=== PATIENT | male | born 1985 | race Caucasian/White ===

== ENCOUNTER 2019-10-29 08:03 | Day surgery (SDC) | payer BC, OTHER ==
[~2019-10-29] VITALS: Ht 182.9 cm; Wt 140.0 kg
[2019-10-29] VITALS (11 sets, daily range): BP systolic 110–145; BP diastolic 64–92
[2019-10-29] MEDS ORDERED: METO50TA7 PO (08:30)
[2019-10-29] MEDS ORDERED: Lamotrigine (08:30)
[2019-10-29] MEDS ORDERED: CHLO25TA22 (08:30)
[2019-10-29] MEDS ORDERED: CATHETER FLUSH 10 ML SYR IV PRN (08:45)
[2019-10-29] MEDS ORDERED: IOHEXOL 350 MG/ML 100 ML (OMNIPAQUE 350) VIAL IV ONE (08:45)
[2019-10-29] MEDS ORDERED: NS 100 ML (IVPB) BAG IV ONE (08:45)
[2019-10-29] MEDS ORDERED: HOLD METFORMIN - RECEIVED CONTRAST 20 ML VIAL IV SCH (08:45)
--- NOTE | 2019-10-29 08:47 | ED Integumentary General ---
General Chief Complaint: Skin/Wound Problems Stated Complaint: FACE SWOLLEN Source: patient History of Present Illness Date Seen by Provider: Oct 29, 2019 Time Seen by Provider: 08:42 Initial Comments The patient is a 33-year-old white male who presents with complaints of pain and swelling in his right face. He reports that when he went to bed Friday night, 36 hours ago, he had no pain or swelling. When he awakened morning he noted swelling. He was seen by [facility] at [place]. He was given a prescription for Keflex and Bactrim which he has not filled. This morning the swelling and pain are much greater and he fears that he may ultimately not be able to swallow. He has no dental complaints. Timing/Duration: yesterday, getting worse Location: face Possible Cause: no cause identified Allergies and Home Medications Allergies Coded Allergies: No Known Drug Allergies (Unverified , 10/29/19) Home Medications Chlorthalidone 50 Mg Tablet, 50 MG PO DAILY, (Reported) Cyclobenzaprine HCl 10 Mg Tablet, 10 MG PO TID PRN for MUSCLE SPASMS, (Reported) Doxycycline Monohydrate 100 Mg Capsule, 100 MG PO BID Prescribed by: KARLA DUNBAR on 10/31/191205 Hydrocodone/Acetaminophen 1 Each Tablet, 1 EA PO Q4H PRN for PAIN-MODERATE (5-7) Prescribed by: KARLA DUNBAR on 10/31/191205 Lamotrigine 25 Mg Tablet, 50 MG PO DAILY, (Reported) TAKES 2 (25MG) TABLETS Metoprolol Succinate 50 Mg Tab.er.24h, 50 MG PO DAILY, (Reported) Miconazole Nitrate 90 Gm Powder, 0 GM TOP BID Prescribed by: KARLA DUNBAR on 10/31/191205 Mupirocin 22 Gm Oint...g., 22 GM TP BID Prescribed by: KARLA DUNBAR on 10/31/191205 Nitroglycerin 0.4 Mg Tab.subl, 0.4 MG SL UD PRN for CHEST PAIN (ANGINA), (Reported) Nystatin 15 Gm Cream..g., 0 GM TP TID Prescribed by: KARLA DUNBAR on 10/31/191205 Sulfamethoxazole/Trimethoprim 1 Each Tablet, 1 EACH PO BID Prescribed by: KARLA DUNBAR on 10/31/191205 Patient Home Medication List Home Medication List Reviewed: Yes Review of Systems Review of Systems Constitutional: see HPI Respiratory: no symptoms reported Cardiovascular: no symptoms reported Gastrointestinal: no symptoms reported Genitourinary: no symptoms reported Musculoskeletal: no symptoms reported Skin: no symptoms reported Psychiatric/Neurological: No Symptoms Reported Endocrine: No Symptoms Reported Past Lhhjnal-Vslbza-Rkgnlb Hx Patient Social History Alcohol Use: Rarely Uses Recreational Drug Use: No Smoking Status: Never a Smoker Recent Foreign Travel: No Contact w/Someone Who Travel: No Recent Hopitalizations: No Immunizations Up To Date Tetanus Booster (TDap): Less than 5yrs Date of Influenza Vaccine: Sep 24, 2019 Seasonal Allergies Seasonal Allergies: No Past Medical History Surgeries: Yes (Gastric bypass 2016, Bilat inguinal hernia) Cardiac: Yes Hypertension Neurological: No Genitourinary: No Gastrointestinal: No Musculoskeletal: No Endocrine: No HEENT: No Cancer: No Psychosocial: Yes (medicated for "Anger issues" ) Integumentary: Yes (area of concern R cheek marked swelling) Recent Skin Changes Blood Disorders: No Physical Exam Vital Signs Vital Signs - First Documented 10/29/19 08:10 Temp 36.4 Pulse 88 Resp 18 B/P (MAP) 154/87 (109) Pulse Ox 98 O2 Delivery Room Air Capillary Refill : General Appearance: mild distress Neck: non-tender, full range of motion Cardiovascular: regular rate, rhythm, no edema, no gallop Respiratory: chest non-tender, lungs clear, normal breath sounds Comments There is remarkable swelling in the right cheek. There is a small skin abrasion just posterior to the right nasolabial fold. There is no evidence of dental disease or gum swelling. The neck is soft without palpable nodes. Progress/Results/Core Measures Results/Orders Lab Results Laboratory Tests Test 10/29/19 08:43 Range/Units White Blood Count 8.1 4.3-11.0 10^3/uL Red Blood Count 5.05 4.35-5.85 10^6/uL Hemoglobin 14.3 13.3-17.7 G/DL Hematocrit 42 40-54 % Mean Corpuscular Volume 85 80-99 FL Mean Corpuscular Hemoglobin 28 25-34 PG Mean Corpuscular Hemoglobin Concent 33 32-36 G/DL Red Cell Distribution Width 12.9 10.0-14.5 % Platelet Count 250 130-400 10^3/uL Mean Platelet Volume 10.2 7.4-10.4 FL Neutrophils (%) (Auto) 73 42-75 % Lymphocytes (%) (Auto) 17 12-44 % Monocytes (%) (Auto) 7 0-12 % Eosinophils (%) (Auto) 2 0-10 % Basophils (%) (Auto) 0 0-10 % Neutrophils # (Auto) 5.9 1.8-7.8 X 10^3 Lymphocytes # (Auto) 1.3 1.0-4.0 X 10^3 Monocytes # (Auto) 0.6 0.0-1.0 X 10^3 Eosinophils # (Auto) 0.2 0.0-0.3 10^3/uL Basophils # (Auto) 0.0 0.0-0.1 10^3/uL Sodium Level 137 135-145 MMOL/L Potassium Level 3.3 L 3.6-5.0 MMOL/L Chloride Level 95 L 98-107 MMOL/L Carbon Dioxide Level 31 21-32 MMOL/L Anion Gap 11 5-14 MMOL/L Blood Urea Nitrogen 12 7-18 MG/DL Creatinine 0.96 0.60-1.30 MG/DL Estimat Glomerular Filtration Rate > 60 BUN/Creatinine Ratio 13 Glucose Level 104 70-105 MG/DL Calcium Level 9.4 8.5-10.1 MG/DL Corrected Calcium 9.2 8.5-10.1 MG/DL Total Bilirubin 0.6 0.1-1.0 MG/DL Aspartate Amino Transf (AST/SGOT) 17 5-34 U/L Alanine Aminotransferase (ALT/SGPT) 12 0-55 U/L Alkaline Phosphatase 84 40-136 U/L Total Protein 7.4 6.4-8.2 GM/DL Albumin 4.2 3.2-4.5 GM/DL My Orders Orders - LAURIE OLEARY MD Cbc With Automated Diff (10/29/19 08:40) Comprehensive Metabolic Panel (10/29/19 08:40) Ct Neck (Soft Tissue) W (10/29/19 08:40) Iohexol Injection (Omnipaque 350 Mg/Ml 1 (10/29/19 08:45) Received Contrast (Hold Metformin- Contr (10/29/19 08:45) Sodium Chloride Flush (Catheter Flush Sy (10/29/19 08:45) Ns (Ivpb) (Sodium Chloride 0.9% Ivpb Bag (10/29/19 08:45) Fentanyl Injection (Sublimaze Injection (10/29/19 09:45) Piperacillin/Tazobactam (Bulk) (Zosyn In (10/29/19 10:00) Piperacillin Sodium/Tazobactam (Zosyn Vi (10/29/19 10:00) Water (Sterile) For Injection (Sterile W (10/29/19 10:00) Ns (Ivpb) (Sodium Chloride 0.9% Ivpb Bag (10/29/19 10:00) Medications Given in ED Vital Signs/I&O 10/29/19 08:10 Temp 36.4 Pulse 88 Resp 18 B/P (MAP) 154/87 (109) Pulse Ox 98 O2 Delivery Room Air Departure Communication (Admissions) CT scan returned with a reports of considerable inflammation in the area described in the exam. They did not describe abscess formation at this point b ut expected it to develop. I spoke to Dr. Lamb from the ENT service at 0946. After considering options we elected to admit him to the [facility] for IV antibiotics. His than anticipated that he will require drainage to follow. 0953 I then discussed this with Dr. Dunbar who is online merchant for [facility] hospitalist. We agreed that he would be given his first dose of antibiotic here and then be transferred there. The planned antibiotics will be vancomycin and Zosyn. Impression Primary Impression: right facial abscess Disposition: XF T-[facility] Condition: Stable/Unchanged Admissions Decision to Admit Reason: Admit from ER (General) Decision to Admit/Date: Oct 29, 2019 Time/Decision to Admit Time: 09:55 Departure-Patient Inst. Referrals: NO,LOCAL PHYSICIAN (PCP/Family) Primary Care Physician Scripts Mupirocin (Mupirocin) 22 Gm Oint...g. 22 GM TP BID, #1 TUBE Prov: KARLA DUNBAR DO 10/31/19 Sulfamethoxazole/Trimethoprim (Bactrim 400-80 mg Tablet) 1 Each Tablet 1 EACH PO BID, #14 TAB Prov: KARLA DUNBAR DO 10/31/19 Doxycycline Monohydrate (Doxycycline Monohydrate) 100 Mg Capsule 100 MG PO BID, #14 CAP Prov: KARLA DUNBAR DO 10/31/19 Nystatin (Nystatin) 15 Gm Cream..g. 0 GM TP TID, #1 TUBE Prov: KARLA DUNBAR DO 10/31/19 Miconazole Nitrate (Lotrimin AF) 90 Gm Powder 0 GM TOP BID, #1 EA Prov: KARLA DUNBAR DO 10/31/19 Hydrocodone/Acetaminophen (Hydrocodon-Acetaminophn 10-325) 1 Each Tablet 1 EA PO Q4H PRN for PAIN-MODERATE (5-7), #10 TAB Prov: KARLA DUNBAR DO 10/31/19 Images Head/Face 1 - Abrasion LAURIE OLEARY MD Oct 29, 2019 08:47 POS
[2019-10-29 08:57] LABS: HEMATOCRIT 42 % (40-54); HEMOGLOBIN 14.3 G/DL (13.3-17.7); MEAN CORPUSCULAR HEMOGLOBIN 28 PG (25-34); MEAN CORPUSCULAR HGB CONC 33 G/DL (32-36); MEAN CORPUSCULAR VOLUME 85 FL (80-99); MEAN PLATELET VOLUME 10.2 FL (7.4-10.4); PLATELET COUNT 250 10^3/uL (130-400); RED CELL DISTRIBUTION WIDTH 12.9 % (10.0-14.5); WHITE BLOOD COUNT 8.1 10^3/uL (4.3-11.0)
[2019-10-29 08:58] LABS: BASOPHILS % (AUTO) 0 % (0-10); EOSINOPHILS # (AUTO) 0.2 10^3/uL (0.0-0.3); EOSINOPHILS % (AUTO) 2 % (0-10); LYMPHOCYTES # (AUTO) 1.3 X 10^3 (1.0-4.0); LYMPHOCYTES % (AUTO) 17 % (12-44); MONOCYTES # (AUTO) 0.6 X 10^3 (0.0-1.0); MONOCYTES % (AUTO) 7 % (0-12); NEUTROPHILS # (AUTO) 5.9 X 10^3 (1.8-7.8); NEUTROPHILS % (AUTO) 73 % (42-75)
[2019-10-29 09:09] LABS: POTASSIUM 3.3 MMOL/L (3.6-5.0); SODIUM 137 MMOL/L (135-145)
[2019-10-29 09:10] LABS: ALANINE AMINOTRANSFERASE 12 U/L (0-55); ALBUMIN 4.2 GM/DL (3.2-4.5); ALKALINE PHOSPHATASE 84 U/L (40-136); BILIRUBIN,TOTAL 0.6 MG/DL (0.1-1.0); BUN/CREATININE RATIO 13; CALCIUM 9.4 MG/DL (8.5-10.1); CARBON DIOXIDE 31 MMOL/L (21-32); CHLORIDE 95 MMOL/L (98-107); CREATININE SERUM 0.96 MG/DL (0.60-1.30); GFR ESTIMATED > 60; GLUCOSE 104 MG/DL (70-105); TOTAL PROTEIN 7.4 GM/DL (6.4-8.2)
--- NOTE | 2019-10-29 09:20 | Diagnostic Imaging Report ---
PROCEDURE: CT neck soft tissue with contrast. TECHNIQUE: Multiple contiguous axial images were obtained through the neck after the administration of contrast. Auto Exposure Controls were utilized during the CT exam to meet ALARA standards for radiation dose reduction. INDICATION: Right-sided facial swelling. COMPARISON: None available. FINDINGS: The minimally visualized intracranial contents are grossly unremarkable. The orbits are unremarkable. Significant fat stranding is noted within the subcutaneous tissues of the right face and neck. This is associated with mild skin thickening. Thickening of the right platysma is also noted. Lymph nodes within the right neck are asymmetrically prominent in size and number. No definite focal fluid collection. The muscles of mastication are unremarkable. The salivary glands are unremarkable. Parapharyngeal fat is symmetric and well-maintained. The tonsillar pillars are unremarkable. Retropharyngeal space is unremarkable. The airway is patent. Epiglottis and aryepiglottic folds are unremarkable. The thyroid gland is unremarkable. Visualized lung apices are clear. No apical pneumothorax. The paranasal sinuses are clear. The calvarium is intact within the hahiz-zq-oljo. No acute osseous abnormality. No evidence of osseous destruction. No temporomandibular joint dislocation. IMPRESSION: Significant inflammatory stranding involving the right face and neck with associated mildly prominent right-sided lymph nodes and thickening of the platysma. Findings are favored to relate to cellulitis. No definite evidence of a focal fluid collection to suggest abscess formation. Dictated by: Dictated on workstation # [id number]
[2019-10-29] MEDS ORDERED: fentaNYL INJECTION 100 MCG/2 ML AMP IVP ONE (09:45)
[2019-10-29] MEDS ORDERED: NS (IVPB) 100 ML ONE (10:00)
[2019-10-29] MEDS ORDERED: WATER (STERILE) FOR INJECTION 20 ML ONE (10:00)
[2019-10-29] MEDS ORDERED: PIPERACILLIN/TAZO 4.5 GM VIAL (ZOSYN) IV ONE (10:00)
[2019-10-29] MEDS ORDERED: PIPERACILLIN/TAZOBACTAM (BULK) 4.5 GM in NS (IVPB) 100 ML IV ONE (10:00)
--- NOTE | 2019-10-29 10:48 | NUR ---
Notified Intellectual Property Counsel pt is departing [facility] post Zosyn given, requiring Vanc on admit. SL intact RAC flushed with Coban wrapping after for protection. Airway patent, SaO2 96% R.A.
--- NOTE | 2019-10-29 11:50 | NUR ---
CR 0.96; CR CL > 80; WT 140 KG; VANCO 2250 MG IV BOLUS THEN 2000 MG IV Q12H; TROUGH AFTER 3RD DOSE
[2019-10-29] MEDS ORDERED: VANCOMYCIN INJECTION 2,250 MG in NS IV 500 ML 500 ML IV NR (12:00)
[2019-10-29] MEDS: fentaNYL INJECTION 100 MCG/2 ML AMP IV PRN ×3 (12:20→19:42)
--- NOTE | 2019-10-29 12:30 | NUR ---
Felix Garcia] admitted to room 411-1, with an admitting diagnosis of , on 10/29/19 from [place] via , accompanied by .FELIX GARCIA introduced to surroundings, call light, bed controls, phone, TV, temperature control, lights, meal times, smoking policy, visitor policy, side rail policy, bathrooms and showers. Patient Rights given to patient in the handbook.FELIX GARCIA verbalizes understanding that [facility] is not responsible for the loss or damage to any personal effects or valuables that are kept in the patients posession during their hospitalization. FELIX GARCIA verbalizes understanding of Interdisciplinary Patient Education. Patient and/or family were informed about the Rapid Response Team and its purpose.
[2019-10-29] MEDS ORDERED: LAMO25TA8 PO (13:06)
[2019-10-29] MEDS ORDERED: CYCL10TA9 PO (13:06)
[2019-10-29] MEDS ORDERED: NITR0.4T42 SL (13:06)
[2019-10-29] MEDS ORDERED: CHLO50TA2 PO (13:06)
[2019-10-29] MEDS ORDERED: CYCLOBENZAPRINE 10 MG (FLEXERIL) TAB PO PRN (13:30)
[2019-10-29] MEDS ORDERED: NITROGLYCERIN 0.4 MG SL TABS BTL 25'S SL PRN (13:30)
[2019-10-29] MEDS: NS IV 1000 ML 1,000 ML IV SCH ×2 (13:48→22:08)
[2019-10-29] MEDS: PIPERACILLIN/TAZO 4.5 GM/NS 100 ML IV SCH ×2 (15:09)
--- NOTE | 2019-10-29 16:50 | Progress Note ---
Standard Progress Note Progress Notes/Assess & Plan Date Seen by a Provider: Oct 29, 2019 Time Seen by a Provider: 16:30 Progress/Assessment & Plan ENT-History/Physical CC: Swollen Right Cheek HPI: Patient admitted earlier today for swollen right cheek. Started on Fri- exploded and got bigger on . Seen and antibiotics written but not picked up. IN ER in [facility] this am. ADmitted to hospital here early this afternoon. Been NPO. REceiving vanco. C/O marked right cheek pain. Teeth ok accorrding to patient. Hurts to open mouth. CT in [facility] showed marked swelling but no abscess at that time. PMHX; wieght los ssurgery in 2016, Heart [id number] patients report no heart abnormality found. 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 I/D in OR with drain placement and cultures-risks and benefits reviewed. consent obtained. Will proceed to OR when crew/anes available 2. would anticipate leaving drain in until at least friday morning so will need contineud IV antibiotics and hosp until then Final Diagnosis Right Cheek Abscess EMY HORTA MD Oct 29, 2019 16:50 POS
--- NOTE | 2019-10-29 16:51 | Progress Note-Pre Operative ---
Pre-Operative Progress Note H&P Reviewed The H&P was reviewed, patient examined and no changes noted. Date Seen by Provider: Oct 29, 2019 Time Seen by Provider: 16:30 Date H&P Reviewed: Oct 29, 2019 Time H&P Reviewed: 16:30 Pre-Operative Diagnosis: Large Right Cheek Abscess EMY HORTA MD Oct 29, 2019 16:51 POS
[2019-10-29] MEDS ORDERED: proPOfol 200 MG/20 ML (DIPRIVAN) VIAL IV ONE (17:14)
[2019-10-29] MEDS ORDERED: DEXAMETHASONE 10 MG/ML (DECADRON) 1 ML VIAL ONE (17:14)
[2019-10-29] MEDS ORDERED: SEVOFLURANE (ULTANE) 15 ML INHAL SOLN ONE ×2 (17:14→17:17)
[2019-10-29] MEDS ORDERED: fentaNYL INJECTION 100 MCG/2 ML AMP ONE ×2 (17:14→17:44)
[2019-10-29] MEDS ORDERED: ONDANSETRON 4 MG/2 ML (SDV) Z0FRAN ONE (17:14)
[2019-10-29] MEDS ORDERED: MIDAZOLAM 2 MG/2 ML (VERSED) VIAL ONE (17:15)
[2019-10-29] MEDS ORDERED: LIDOCAINE/EPI 1%-1:100,000 (XYLOCAINE) 20ML ONE (17:16)
[2019-10-29] MEDS ORDERED: SUCCINYLCHOLINE INJ 100 MG/5 ML SYR ONE (17:17)
[2019-10-29] MEDS ORDERED: morphine INJ 10 MG/ML 1ML (SYR OR VIAL) ONE (17:21)
--- NOTE | 2019-10-29 17:24 | NUR ---
Surgery here to transport patient to OR.
[2019-10-29] MEDS ORDERED: LACTATED RINGERS 1,000 ML IV PRN (17:40)
[2019-10-29] MEDS ORDERED: BSS 15 ML ONE (17:50)
--- NOTE | 2019-10-29 17:58 | Progress Note-Post Operative ---
Post-Operative Progess Note Surgeon (s)/Access Liaison (s) Surgeon EMY HORTA MD Access Liaison n/a Pre-Operative Diagnosis Large Right Cheek Abscess Post-Operative Diagnosis same Post-Op Procedure Note Date of Procedure: Oct 29, 2019 Name of Procedure Performed: I/D Large Right Cheek Abscess Description & Findings Description and Findings: n/a Anesthesia Type get Estimated Blood Loss minimal Packing none. Specimen(s) collected/removed 1 1/2 inch tova drain sewn in; aerobic and anaerobic cultures sent to lab EMY HORTA MD Oct 29, 2019 17:58 POS
--- NOTE | 2019-10-29 18:12 | Anesthesia-General Post-Op ---
General Patient Condition Mental Status/LOC: Same as Preop Cardiovascular: Satisfactory Nausea/Vomiting: Absent Respiratory: Satisfactory Pain: Controlled Complications: Absent Post Op Complications Complications None Follow Up Care/Instructions Patient Instructions None needed. Anesthesia/Patient Condition Patient Condition Patient is doing well, no complaints, stable vital signs, no apparent adverse anesthesia problems. No complications reported per nursing. AMEENA RODRIGUEZ CRNA Oct 29, 2019 18:12 POS
[2019-10-29] MEDS ORDERED: ONDANSETRON 4 MG/2 ML (SDV) Z0FRAN IVP PRN (18:15)
[2019-10-29] MEDS ORDERED: MEPERIDINE (DEMEROL) INJ 50 MG/ML IVP ONE (18:15)
[2019-10-29] MEDS ORDERED: morphine INJ 10 MG/ML 1ML (SYR OR VIAL) IVP ONE (18:15)
--- NOTE | 2019-10-29 19:15 | NUR ---
PT RETURNED FROM OR. REPORT GIVEN FROM CLARK LYNN.
--- NOTE | 2019-10-29 21:30 | NUR ---
PT COMPLAINS OF "DRIPPING" FEELING UNDER HIS DRSG TO RIGHT CHEEK. TOOK DRSG OFF AND SMALL AMOUNT OF SEROSANGUINEOUS DRAINAGE NOTED. DRSG CHANGED. WILL CONTINUE TO MONITOR FOR DRAINAGE AT THIS TIME.
[2019-10-29] MEDS: VANCOMYCIN 2000 MG/NS 500 ML IVPB IV SCH ×2 (22:13)
[2019-10-30] VITALS: BP 131/70
[2019-10-30] MEDS: PIPERACILLIN/TAZO 4.5 GM/NS 100 ML IV SCH ×6 (00:27→16:49)
[2019-10-30] MEDS: fentaNYL INJECTION 100 MCG/2 ML AMP IV PRN ×2 (00:28→08:18)
[2019-10-30 04:00] VITALS: BP 118/56
[2019-10-30] MEDS: NS IV 1000 ML 1,000 ML IV SCH (04:15)
[2019-10-30] MEDS: CHLORTHALIDONE 25 MG (HYGROTON) TABLET PO SCH (05:45)
--- NOTE | 2019-10-30 06:50 | Progress Note ---
Standard Progress Note Progress Notes/Assess & Plan Date Seen by a Provider: Oct 30, 2019 Time Seen by a Provider: 06:30 Progress/Assessment & Plan ENT-History/Physical CC: Swollen Right Cheek HPI: Patient admitted earlier today for swollen right cheek. Started on Fri- exploded and got bigger on . Seen and antibiotics written but not picked up. IN ER in [facility] this am. ADmitted to hospital here early this afternoon. Been NPO. REceiving vanco. C/O marked right cheek pain. Teeth ok accorrding to patient. Hurts to open mouth. CT in [facility] showed marked swelling but no abscess at that time. PMHX; wieght los ssurgery in 2016, Heart [id number] patients report no heart abnormality found. 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 I/D in OR with drain placement and cultures-risks and benefits reviewed. consent obtained. Will proceed to OR when crew/anes available 2. would anticipate leaving drain in until at least friday morning so will need contineud IV antibiotics and hosp until then ENT-Fernando Doing much better this am MInimal pain-still with moderate drainage from drain raman diet Face-drain intact with mod drainage on dressing diet as raman/ may shower-keep area dry needs 24 more hours of IV antibiotics and if draiange comes down then will pull ramiro in am and coudl be discharged on oral antibiotics-no culture results back yet facial movements are normal EMY HORTA MD Oct 30, 2019 06:50 POS
[2019-10-30 08:06] VITALS: BP 128/67
[2019-10-30] MEDS: lamoTRIgine 25 MG (LaMICtal) TAB PO SCH (08:13)
[2019-10-30] MEDS: meTOproloL SUCCINATE 50 MG (TOPROL XL) TAB PO SCH (08:13)
[2019-10-30] MEDS ORDERED: LAMOTRIGINE 50 MG PO SCH (09:00)
[2019-10-30] MEDS ORDERED: CHLORTHALIDONE 50 MG PO SCH (09:00)
[2019-10-30 09:41] LABS: BASOPHILS % (AUTO) 0 % (0-10); EOSINOPHILS % (AUTO) 0 % (0-10); HEMATOCRIT 40 % (40-54); HEMOGLOBIN 13.9 G/DL (13.3-17.7); LYMPHOCYTES # (AUTO) 0.6 X 10^3 (1.0-4.0); LYMPHOCYTES % (AUTO) 6 % (12-44); MEAN CORPUSCULAR HEMOGLOBIN 29 PG (25-34); MEAN CORPUSCULAR HGB CONC 35 G/DL (32-36); MEAN CORPUSCULAR VOLUME 83 FL (80-99); MEAN PLATELET VOLUME 10.6 FL (7.4-10.4); MONOCYTES # (AUTO) 0.5 X 10^3 (0.0-1.0); MONOCYTES % (AUTO) 6 % (0-12); NEUTROPHILS # (AUTO) 8.5 X 10^3 (1.8-7.8); NEUTROPHILS % (AUTO) 88 % (42-75); PLATELET COUNT 286 10^3/uL (130-400); RED CELL DISTRIBUTION WIDTH 13.2 % (10.0-14.5); WHITE BLOOD COUNT 9.7 10^3/uL (4.3-11.0)
[2019-10-30 09:55] LABS: ALANINE AMINOTRANSFERASE 13 U/L (0-55); ALBUMIN 4.1 GM/DL (3.2-4.5); ALKALINE PHOSPHATASE 73 U/L (40-136); BILIRUBIN,TOTAL 0.6 MG/DL (0.1-1.0); BUN/CREATININE RATIO 10; CALCIUM 9.1 MG/DL (8.5-10.1); CARBON DIOXIDE 26 MMOL/L (21-32); CHLORIDE 100 MMOL/L (98-107); CREATININE SERUM 0.89 MG/DL (0.60-1.30); GFR ESTIMATED > 60; GLUCOSE 182 MG/DL (70-105); SODIUM 138 MMOL/L (135-145); TOTAL PROTEIN 7.1 GM/DL (6.4-8.2)
--- NOTE | 2019-10-30 10:05 | History & Physical-Hospitalist ---
History of Present Illness HPI/Chief Complaint CC: Facial pain. HPI: This is a 28yo[place] of [place] who presents with facial pain, found to have an abscess in need of IV antibiotics of Vancomycin and Zosyn for broad spectrum in addition to Dr. Lamb consultation who performed an incision and drainage. At this current time Pt is requesting his home medication and denies any significant pain otherwise. Broad spectrum abx on board. Source: patient Exam Limitations: no limitations Date Seen 10/30/19 Time Seen by a Provider: 10:30 Attending Physician Angelina Wilkinson DO PCP No,Local Physician Referring Physician Date of Admission Oct 29, 2019 at 10:17 Home Medications & Allergies Home Medications Reviewed patient Home Medication Reconciliation performed by pharmacy medication reconciliations shale processing technician and/or nursing. Patients Allergies have been reviewed. Allergies Allergies Coded Allergies No Known Drug Allergies (Rthkuedmck05/6/19) Past Kupijru-Kjvmzx-Fydxuz Hx Past Med/Social Hx: Reviewed Nursing Past Med/Soc Hx, Reviewed and Corrections made Patient Social History Marrital Status: Employed/Student: employed ([employer]) Alcohol Use: Rarely Uses Recreational Drug Use: No Smoking Status: Never a Smoker Recent Foreign Travel: No Contact w/other who traveled: No Recent Hopitalizations: No Recent Infectious Disease Expo: No Immunizations Up To Date Tetanus Booster (TDap): Less than 5yrs Date of Influenza Vaccine: Sep 24, 2019 Seasonal Allergies Seasonal Allergies: No Past Medical History Cardiac: Hypertension Psychosocial: Depression Skin/Integumentary: Recent Skin Changes History of Blood Disorders: No Family History Diabetes mellitus 19 FATHER 19 MOTHER G8 SISTER Thyroid disease G8 SISTER Review of Systems Constitutional: see HPI, fever EENTM: mouth pain, mouth swelling, throat pain, throat swelling Physical Exam Physical Exam Vital Signs Vital Signs - First Documented 10/29/19 10/29/19 08:10 18:09 Temp 36.4 Pulse 88 Resp 18 B/P (MAP) 154/87 (109) Pulse Ox 98 O2 Delivery Room Air O2 Flow Rate 10 Capillary Refill : Less Than 3 Seconds Height, Weight, BMI Height: '" Weight: lbs. oz. kg; 41.91 BMI Method: General Appearance: WD/WN, Chronically ill, Mild Distress, Obese Eyes: Right Eye Normal Inspection, Right Eye PERRL HEENT: PERRL/EOMI, Other (right mandible with abscess) Neck: Full Range of Motion, Normal Inspection, Non Tender Respiratory: Chest Non Tender, Lungs Clear, Normal Breath Sounds, No Accessory Muscle Use, No Respiratory Distress Cardiovascular: Regular Rate, Rhythm, No Edema, No Gallop, No JVD, No Murmur, Normal Peripheral Pulses Gastrointestinal: Normal Bowel Sounds, No Organomegaly, No Pulsatile Mass, Non Tender, Soft Back: Normal Inspection, No CVA Tenderness, No Vertebral Tenderness Extremity: Normal Capillary Refill, Normal Inspection, Normal Range of Motion, Non Tender, No Calf Tenderness, No Pedal Edema Neurologic/Psychiatric: Alert, Oriented x3, No Motor/Sensory Deficits, Normal Mood/Affect Skin: Normal Color, Warm/Dry Lymphatic: No Adenopathy Results Results/Procedures Labs Laboratory Tests 10/30/19 08:57 Patient resulted labs reviewed. Assessment/Plan Admission Diagnosis Assessment: Right facial abscess s/p I&D HTN Plan: Abx DR Lamb appreciated Admission Status: Observation Diagnosis/Problems Diagnosis/Problems (1) Facial abscess Clinical Quality Measures DVT/VTE Risk/Contraindication: Risk Factor Score Per Nursin RFS Level Per Nursing on Admit: 2=Moderate ANGELINA WILKINSON DO Oct 30, 2019 10:05 POS
[2019-10-30 10:13] LABS: BAND NEUTROPHILS 1 %; LYMPHOCYTES % (MANUAL) 2 %; MONOCYTES % (MANUAL) 8 %; NEUTROPHILS % (MANUAL) 89 %; RBC MORPH NORMAL
[2019-10-30 10:14] LABS: HYPERSEGMENTED NEUT SLIGHT
[2019-10-30 11:46] VITALS: BP 130/75
[2019-10-30] MEDS: VANCOMYCIN 2000 MG/NS 500 ML IVPB IV SCH ×2 (11:57)
[2019-10-30] MEDS: NYSTATIN CREAM (MYCOSTATIN) 30 GM TUBE TP SCH ×2 (11:58→19:44)
[2019-10-30] MEDS: HYDROcodone/APAP 10 MG/325 MG (LORTAB) TAB PO PRN ×2 (13:04→19:44)
[2019-10-30 15:31] VITALS: BP 156/79
[2019-10-30 19:21] VITALS: BP 101/55
[2019-10-30] MEDS: MICONAZOLE 2% POWDER (DESENEX AF) 90 GM TOP SCH (19:45)
[2019-10-30] MEDS ORDERED: TROUGH ORDER-PHARMACY XX NR (23:00)
[2019-10-31] VITALS: BP 116/73
[2019-10-31] MEDS: VANCOMYCIN 2000 MG/NS 500 ML IVPB IV SCH ×2
[2019-10-31] MEDS: PIPERACILLIN/TAZO 4.5 GM/NS 100 ML IV SCH ×4 (02:10→08:34)
[2019-10-31 04:00] VITALS: BP 113/71
[2019-10-31] MEDS: HYDROcodone/APAP 10 MG/325 MG (LORTAB) TAB PO PRN ×2 (06:06)
[2019-10-31] MEDS: CHLORTHALIDONE 25 MG (HYGROTON) TABLET PO SCH (06:07)
--- NOTE | 2019-10-31 06:48 | Progress Note ---
Standard Progress Note Progress Notes/Assess & Plan Date Seen by a Provider: Oct 31, 2019 Time Seen by a Provider: 06:30 Progress/Assessment & Plan ENT-History/Physical CC: Swollen Right Cheek HPI: Patient admitted earlier today for swollen right cheek. Started on Fri- exploded and got bigger on . Seen and antibiotics written but not picked up. IN ER in [facility] this am. ADmitted to hospital here early this afternoon. Been NPO. REceiving vanco. C/O marked right cheek pain. Teeth ok accorrding to patient. [facility]. PMHX; wieght los ssurgery in 2016, Heart [id number] patients report no heart abnormality found. all-see chart Exam General-patient in moderate distress-hurts to open mouth or talk FAce-marked swelling right cheek with skin abrasion where it started just lateral to the upper lip Lower lip swollen and tingling OC-finger waver open mouth but hurts no swellign of tongue-teeth in decent shap and no evidence of abscess Neck-minimal swellign in neck Airway-good airway present no stridor IMP: Large Rigth Cheek Abscess-probable staph Rec: 1. I/D in OR with drain placement and cultures-risks and benefits reviewed. consent obtained. Will proceed to OR when crew/anes available 2. would anticipate leaving drain in until at least friday morning so will need contineud IV antibiotics and hosp until then [id number] Doing much better this am MInimal pain-still with moderate drainage from drain raman diet Face-drain intact with mod drainage on dressing diet as raman/ may shower-keep area dry needs 24 more hours of IV antibiotics and if draiange comes down then will pull ramiro in am and coudl be discharged on oral antibiotics-no culture results back yet facial movements are normal [id number] doing well no sign pain Drainage has decreased. Await cultures drain d/c'ed [id number] improved- can discharge on bactrim and doxycylcine-bactroban to incision site RTC-2 weeks Final Diagnosis Right Cheek abscess -probable MRSA EMY HORTA MD Oct 31, 2019 06:48 POS
--- NOTE | 2019-10-31 07:00 | NUR ---
DR HORTA DID ROUNDS THIS AM AND REPORTED TO THIS NURSE BELT LINE FEEDER THAT HE TOOK OUT DRAIN THIS MORNING IN PT'S CHEEK AND THAT HE WAS FINE TO DISCHARGE LONG DR DUNBAR WAS OK WITH IT. DR HORTA REPORTED TO THIS RN THAT HE PUT SIGNED SCRIPTS FOR ANTIBIOTICS IN CHART AND THAT HE WAS OK TO GO BACK TO WORK WHEN HE IS READY. DR DUNBAR NOTIFIED AND AM RN NOTIFIED OF THIS INFO WELL.
[2019-10-31 08:00] VITALS: BP 136/72
[2019-10-31] MEDS: lamoTRIgine 25 MG (LaMICtal) TAB PO SCH (08:34)
[2019-10-31] MEDS: meTOproloL SUCCINATE 50 MG (TOPROL XL) TAB PO SCH (08:34)
[2019-10-31] MEDS: MICONAZOLE 2% POWDER (DESENEX AF) 90 GM TOP SCH (08:42)
[2019-10-31] MEDS: NYSTATIN CREAM (MYCOSTATIN) 30 GM TUBE TP SCH (08:42)
[2019-10-31 12:00] VITALS: BP 128/56
[2019-10-31] MEDS ORDERED: NYST15CR TP (12:06)
[2019-10-31] MEDS ORDERED: HYDR-3820 PO (12:06)
[2019-10-31] MEDS ORDERED: MICO90PO TOP (12:06)
[2019-10-31] MEDS ORDERED: DOXY100C42 PO (12:06)
[2019-10-31] MEDS ORDERED: SULF1TAB34 PO (12:06)
[2019-10-31] MEDS ORDERED: MUPI22OI2 TP (12:06)
--- NOTE | 2019-10-31 12:07 | Discharge Summary ---
Discharge Summary Hospital Course Was the Problem List Reviewed?: Yes Hospital Course Date of Admission: Oct 29, 2019 at 10:17 Admission Diagnosis : Family Physician/Provider: No,Local Physician Date of Discharge: 10/31/19 Discharge Diagnosis: right cheek abscess, s/p weight loss surgery in past, HTN Hospital Course: Patient was admitted with broad-spectrum antibiotics from the [facility] and Dr. Lamb was consulted who performed the incision and drainage and patient maintained with close monitoring with IV fluids and supportive care. Dr. Lamb assessed the area found him to be in good healing resolution phase and rec ommended doxycycline and Bactrim and Bactroban to the area at discharge. Labs and Pending Lab Test: Laboratory Tests 10/30/19 23:03: Vancomycin Level Trough 14.2 Microbiology 10/29/19 Gram Stain - Final, Resulted 10/29/19 Anaerobic Culture, Resulted Pending 10/29/19 Surgical Culture - Preliminary, Resulted Usual Mixed Skin Mireille Staphylococcus aureus Home Meds Active Reported Nitroglycerin 0.4 Mg Tab.subl 0.4 Mg SL UD PRN Cyclobenzaprine HCl 10 Mg Tablet 10 Mg PO TID PRN Chlorthalidone 50 Mg Tablet 50 Mg PO DAILY Lamotrigine 25 Mg Tablet 50 Mg PO DAILY TAKES 2 (25MG) TABLETS Metoprolol Succinate 50 Mg Tab.er.24h 50 Mg PO DAILY Assessment/Pt Instructions [facility] Friday, Discharge Planning: <30 minutes discharge planning Discharge Instructions Discharge Diet: No Restrictions Activity as Tolerated: Yes Discharge Physical Examination Vital Signs Vital Signs Date Time Temp Pulse Resp B/P (MAP) Pulse Ox O2 Delivery O2 Flow Rate FiO2 10/31/19 08:00 36.2 67 20 136/72 (93) 98 Room Air 10/29/19 18:40 5 General Appearance: No Apparent Distress, WD/WN, Obese Respiratory: Lungs Clear Cardiovascular: Regular Rate, Rhythm Skin: Other (right face dressing intact) Neurologic/Psychiatric: Alert, Oriented x3, No Motor/Sensory Deficits, Normal Mood/Affect Allergies: Coded Allergies: No Known Drug Allergies (Unverified , 10/29/19) Discharge Summary Date of Admission Oct 29, 2019 at 10:17 Date of Discharge Discharge Date: Oct 31, 2019 Clinical Quality Measures DVT/VTE Risk/Contraindication: Risk Factor Score Per Nursin RFS Level Per Nursing on Admit: 2=Moderate KARLA DUNBAR DO Oct 31, 2019 12:07 POS
[2019-10-31] MEDS ORDERED: KCL 20 MEQ TAB (K-DUR) PO NR (12:15)
[2019-10-31 13:03] VITALS: BP 128/56
--- OUTSIDE RECORDS SUMMARY | 2019-11-24 10:08 | XMS REPORT | Continuity of Care Document ---
Author Organization Unknown Address Unknown Phone Unavailable Allergies Active Description Code Type Severity Reaction Onset Reported/Identified Relationship to Patient Clinical Status Yes No Known Drug Allergies [id number] Drug Allergy Unknown N/A 10/29/2019 Medications There is no data. 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 Results Test Result Range LIPID PANEL - 04/30/19 07:18 CHOLESTEROL, TOTAL 158 mg/dL <200 HDL CHOLESTEROL 52 mg/dL >40 TRIGLYCERIDES 92 mg/dL <150 LDL-CHOLESTEROL 87 mg/dL (calc) NRG CHOL/HDLC RATIO 3.0 (calc) <5.0 NON HDL CHOLESTEROL 106 mg/dL (calc) <13 0 CMP - 04/30/19 07:18 GLUCOSE 98 mg/dL 65-99 UREA NITROGEN (BUN) 17 mg/dL 7-25 CREATININE 1.11 mg/dL 0.60-1.35 eGFR NON-AFR. ALBANIAN 86 mL/min/1.73m2 > OR = 60 eGFR 99 mL/min/1.73m2 > OR = 60 BUN/CREATININE RATIO NOT APPLICABLE (calc) 6-22 SODIUM 140 mmol/L 135-146 POTASSIUM 3.2 mmol/L 3.5-5.3 CHLORIDE 97 mmol/L 98-110 CARBON DIOXIDE 34 mmol/L 20-32 CALCIUM 9.5 mg/dL 8.6-10.3 PROTEIN, TOTAL 7.2 g/dL 6.1-8.1 ALBUMIN 4.5 g/dL 3.6-5.1 GLOBULIN 2.7 g/dL (calc) 1.9-3.7 ALBUMIN/GLOBULIN RATIO 1.7 (calc) 1.0-2. 5 BILIRUBIN, TOTAL 0.5 mg/dL 0.2-1.2 ALKALINE PHOSPHATASE 81 U/L 40-115 AST 18 U/L 10-40 ALT 17 U/L 9-46 Complete blood count (CBC) with automate d white blood cell (WBC) differential - 10/29/19 08:43 Blood leukocytes automated count (number/volume) 8.1 10*3/uL 4.3-11.0 Blood erythrocytes automated count (number/volume) 5.05 10*6/uL 4.35-5.85 Venous blood hemoglobin measurement (mass/volume) 14.3 g/dL 13.3-17.7 Blood hematocrit (volume fraction) 42 % 40-54 Automated erythrocyte mean corpuscular volume 85 [ foz_us] 80-99 Automated erythrocyte mean corpuscular h emoglobin (mass per erythrocyte) 28 pg 25-34 Automated erythrocyte mean corpuscular h emoglobin concentration measurement (mass/volume) 33 g/dL 32-36 Automated erythrocyte distribution width ratio 12. 9 % 10.0- 14.5 Automated blood platelet count (count/volume) 250 10*3/uL 130-400 Automated blood platelet mean volume measurement 10.2 [foz_us] 7.4-10.4 Automated blood neutrophils/100 leukocytes 73 % 42-75 Automated blood lymphocytes/100 leukocytes 17 % 12-44 Blood monocytes/100 leukocytes 7 % 0-12 Automated blood eosinophils/100 leukocytes 2 % 0-10 Automated blood basophils/100 leukocytes 0 % 0-10 Blood neutrophils automated count (number/volume) 5.9 10*3 1.8-7.8 Blood lymphocytes automated count (number/volume) 1.3 10*3 1.0-4.0 Blood monocytes automated count (number/volume) 0. 6 10*3 0.0-1.0 Automated eosinophil count 0.2 10*3/uL 0 .0-0.3 Automated blood basophil count (count/volume) 0.0 10*3/uL 0.0-0.1 Bacteria identification in isolate by an aerobe culture - 10/29/19 17:42 Bacteria identification in isolate by anaerobe culture NOANA NRG Gram stain microscopy - 10/29/19 17:42 Gram stain microscopy No bacteria seen NRG Bacteria identification in wound by cult ure - 10/29/19 17:42 Bacteria identification in wound by culture [id number] NRG FREE TEXT EXTERNAL SUSCEPTIBILITY REPORTED 11/01 09 :15 NRG QUANTITY OF GROWTH Rare NRG FREE TEXT ENTRY 2 PRESUMPTIVE MSSA; SCREENING AT [facility] NRG FREE TEXT ENTRY 3 (CONFIRMED BY RML) NR G CALL POSITIVES (F1 HELP) SUSCEPTIBILITY TO FOLLOW NRG PBP2 SCREENING AT [facility] 10/31/19 8:30 NRG Dirithromycin susceptibility test by dis k diffusion - 10/29/19 17:42 Oxacillin susceptibility test by minimum inhibitory co ncentration 0.5 NRG Clindamycin susceptibility test by minimum inhibitory concentration <= NRG Erythromycin susceptibility test by minimum inhibitory concentration <= NRG Trimethoprim/sulfamethoxazole susceptibi lity test by minimum inhibitoryconcentration <= NRG Vancomycin susceptibility test by minimum inhibitory c oncentration 1 NRG Levofloxacin susceptibility test by minimum inhibitory concentration <= NRG Rifampin susceptibility test by minimum inhibitory con centration <= NRG Cefazolin susceptibility test by minimum inhibitory co ncentration <= NRG Linezolid susceptibility test by minimum inhibitory co ncentration 2 NRG Moxifloxacin susceptibility test by minimum inhibitory concentration <= NRG Minocycline susc CARLIE <= NRG Complete blood count (CBC) with automate d white blood cell (WBC) differential - 10/30/19 08:57 Blood leukocytes automated count (number/volume) 9.7 10*3/uL 4.3-11.0 Blood erythrocytes automated count (number/volume) 4.87 10*6/uL 4.35-5.85 Venous blood hemoglobin measurement (mass/volume) 13.9 g/dL 13.3-17.7 Blood hematocrit (volume fraction) 40 % 40-54 Automated erythrocyte mean corpuscular volume 83 [ foz_us] 80-99 Automated erythrocyte mean corpuscular h emoglobin (mass per erythrocyte) 29 pg 25-34 Automated erythrocyte mean corpuscular h emoglobin concentration measurement (mass/volume) 35 g/dL 32-36 Automated erythrocyte distribution width ratio 13. 2 % 10.0- 14.5 Automated blood platelet count (count/volume) 286 10*3/uL 130-400 Automated blood platelet mean volume measurement 10.6 [foz_us] 7.4-10.4 Automated blood neutrophils/100 leukocytes 88 % 42-75 Automated blood lymphocytes/100 leukocytes 6 % 12-44 Blood monocytes/100 leukocytes 6 % 0-12 Automated blood eosinophils/100 leukocytes 0 % 0-10 Automated blood basophils/100 leukocytes 0 % 0-10 Blood neutrophils automated count (number/volume) 8.5 10*3 1.8-7.8 Blood lymphocytes automated count (number/volume) 0.6 10*3 1.0-4.0 Blood monocytes automated count (number/volume) 0. 5 10*3 0.0-1.0 Automated eosinophil count 0.0 10*3/uL 0 .0-0.3 Automated blood basophil count (count/volume) 0.0 10*3/uL 0.0-0.1 Comprehensive metabolic panel - 10/30/19 08:57 Serum or plasma sodium measurement (moles/volume) 138 mmol/L 135-145 Serum or plasma potassium measurement (moles/volume) 3.0 mmol/L 3.6-5.0 Serum or plasma chloride measurement (moles/volume) 100 mmol/L 98-107 Carbon dioxide 26 mmol/L 21-32 Serum or plasma anion gap determination (moles/volume) 12 mmol/L 5-14 Serum or plasma urea nitrogen measurement (mass/volume ) 9 mg/dL 7-18 Serum or plasma creatinine measurement (mass/volume) 0.89 mg/dL 0.60-1.30 Serum or plasma urea nitrogen/creatinine mass ratio 10 NRG Serum or plasma creatinine measurement w ith calculation of estimated glomerular filtration rate > NRG Serum or plasma glucose measurement (mass/volume) 182 mg/dL 70-105 Serum or plasma calcium measurement (mass/volume) 9.1 mg/dL 8.5-10.1 Serum or plasma total bilirubin measurement (mass/volu me) 0.6 mg/dL 0.1-1.0 Serum or plasma alkaline phosphatase chelsie surement (enzymatic activity/volume) 73 U/L 40-136 Serum or plasma aspartate aminotransfera se measurement (enzymatic activity/volume) 11 U/L 5-34 Serum or plasma alanine aminotransferase measurement (enzymatic activity/volume) 13 U/L 0-55 Serum or plasma protein measurement (mass/volume) 7.1 g/dL 6.4-8.2 Serum or plasma albumin measurement (mass/volume) 4.1 g/dL 3.2-4.5 CALCIUM CORRECTED 9.0 mg/dL 8.5-10.1 Manual absolute plasma cell count - 06/11 08:57 Blood monocytes/100 leukocytes 8 % NRG Manual blood segmented neutrophils/100 leukocytes 89 % NRG Blood band neutrophils/100 leukocytes 1 % NRG Manual blood lymphocytes/100 leukocytes 2 % NRG Blood erythrocyte morphology finding identification NORMAL NRG Blood hypersegmented neutrophils detection by light mi croscopy SLIGHT NRG Vancomycin trough - 10/30/19 23:03 Vancomycin trough 14.2 ug/mL 10.0-20.0 Encounters ACCT No. Visit Date/Time Discharge Status Pt. Type Provider Facility Loc./Unit Complaint [id number] 11/09/2019 09:30:00 11/09/2019 23:59: 59 CLS Outpatient [facility] ARMAND HINES [id number] 04/30/2019 07:00:00 Document Registration [id number] 10/29/2019 10:17:00 019 13:03:00 DIS Inpatient KARLA DUNBAR DO, V [facility] 4TH FACE [place]
--- OUTSIDE RECORDS SUMMARY | 2019-11-24 10:08 | XMS REPORT ---
Author Author Colten MYERS Organization [facility] Address [address] [place] [address] Care Team Providers Care Sales Record Clerk Name Role Phone LUCIA JEANINE Unavailable PROBLEMS Type Condition ICD9-CM Code MFF47-WX Code Onset Dates Condition S tatus SNOMED Code Problem Varicose veins of both lower extremities with pain 454.8 11 May, 2018 0 [id number] Problem Headache in front of head 784.0 Aug, 0 20502920 Problem Daytime somnolence 780.54 Aug, 0 [id number] Problem Morbid obesity with BMI of 45.0-49.9, adult 278.01 Jul, 0 111262694 Problem Environmental allergies V15.09 May, 0 082460933 Problem Irritability and anger 799.22 Oct, 0 179221153 Problem Poison mario L23.7 13 Dec, 2016 0 025094 05 Problem Peripheral neuropathy G62.9 11 Jul, 2014 0 475058306 Problem Severe obesity (BMI 35.0-39.9) with comorbidity 278.01 Apr, 0 677561877 Problem Hypertension 401.9 11 Jul, 2014 0 3834 1003 Problem Varicose veins of both lower extremities with pain I83.813 May, 0 303067334 Problem Severe obesity (BMI 35.0-39.9) with comorbidity E6 6.01 Apr, 0 412545610 Problem Headache in front of head R51 Aug, 0 40273300 Problem Acute nasopharyngitis 460 Nov, 0 03355395 Problem Daytime somnolence R40.0 Aug, 0 [id number] Problem Acute nasopharyngitis J00 Nov, 0 87069243 Problem Environmental allergies Z91.09 May, 0 857271408 Problem Hypertension I10 11 Jul, 2014 0 3834 1003 Problem Irritability and anger R45.4 Oct, 0 008643056 Problem Essential (primary) hypertension I10 Active 11351577 Problem Snoring 786.09 06 Aug, 2015 0 2920663 1 Problem Other chronic pain G89.29 Active 8 6168874 Problem Poison mario 692.6 13 Dec, 2016 0 086594 05 Problem Peripheral neuropathy 356.9 11 Jul, 2014 0 519919903 Problem Snoring R06.83 06 Aug, 2015 0 5433927 1 Problem Morbid obesity with BMI of 45.0-49.9, adult E66.01 11 Jul, 2014 0 537545364 Problem Hypertension, essential I10 Active 60829053 Problem Shoulder pain M25.519 Active 393573 00 ALLERGIES No Information ENCOUNTERS Encounter Location Date Diagnosis [address] [address] Apr, Morbid obesity E66.[address] [address] Apr, [address] [address] Apr, Morbid obesity E66.01 ; Encounter for screening for diabetes mellitus Z13.1 and Encounter for screening for lipoid disorders Z13.[address] [address] March, [address] [address] March, [address] [address] March, [address] [address] March, Pedal edema R60.0 ; Encounter for medication management Z79.899 and Morbid obesity E66.[address] [address] March, [facility] [address] [facility] [id number] [place] [address] Feb, Other chronic pain G89.29 an d Pain in right shoulder M25.[address] [address] Feb, Pain in right shoulder M25.511 ; Other chronic pain G89.29 and Morbid obesity E66.[address] [address] Jan, [address] [address] Jan, Morbid obesity E66.01 ; Essential (primary) hypertension I10 ; Shoulder pain M25.519 ; Strain of right shoulder, initial encounter S46.911A and Encounter for immunization Z23 [address] [address] Dec, [address] [address] Dec, [address] [address] Dec, [address] [address] Dec, BMI 40.0-44.9, adult Z68.41 ; Acute pain of right knee M25.561 and Sprain of medial collateral ligament of right knee, subsequent encounter S83.411D [address] [address] Dec, [address] [address] Dec, Chest pain, unspecified type R07.9 ; Hypertension, essential I10 and BMI 40.0-44.9, adult Z68.[address] [address] Nov, Right knee sprain S83.91XA [place] [address] [place] [id number] [place] [address] Oct, [place] [address] [place] [id number] [place] [address] Sep, [facility] [address] [facility] [id number] [address] [place] [address] Aug, [facility] [address] [place] [id number] [place] [phone] Aug, [facility] [address] [place] [id number] [place] [address] Aug, IMMUNIZATIONS No Known Immunizations SOCIAL HISTORY Never Assessed REASON FOR VISIT MRI results PLAN OF CARE VITAL SIGNS MEDICATIONS Unknown Medications RESULTS No Results PROCEDURES No Known procedures INSTRUCTIONS MEDICATIONS ADMINISTERED No Known Medications MEDICAL (GENERAL) HISTORY Type Description Date Medical History hypertension Medical History morbid obesity Medical History environmental allergies Medical History varicose veins of both lower extremities Medical History peripheral neuropathy Medical History daytime somnolence Medical History irritability and anger Medical History environmental allergies Medical History varicose veins of both lower extremitis with pain Surgical History hernia repair Surgical History gastric bypass 2015 Surgical History heart cath Hospitalization History surgery
--- OUTSIDE RECORDS SUMMARY | 2019-11-24 14:05 | XMS REPORT | Continuity of Care Document ---
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 [place]INAM[place] 86 mL/min/1.73m2 > OR = 60 eGFR [...] 17:42 Bacteria identification in wound by culture [id number] NRG FREE TEXT EXTERNAL SUSCEPTIBILITY REPORTED 11/01 09 :15 NRG QUANTITY OF GROWTH Rare NRG FREE TEXT ENTRY 2 PRESUMPTIVE MSSA; SCREENING AT [facility] NRG FREE TEXT ENTRY 3 (CONFIRMED BY RML) NR G CALL POSITIVES (F1 HELP) SUSCEPTIBILITY TO FOLLOW NRG PBP2 SCREENING AT [facility] 10/31/19 8:30 NRG Dirithromycin susceptibility test [...] Status Pt. Type Provider Facility Loc./Unit Complaint [id number] 11/09/2019 09:30:00 11/09/2019 23:59: 59 CLS Outpatient [facility] ARM[facility] HINES [id number] 04/30/2019 07:00:00 Document Registration [id number] 10/29/2019 10:17:00 019 13:03:00 DIS Inpatient KARLA DUNBAR DO, V [facility] 4TH FACE SWO[address]EN
--- OUTSIDE RECORDS SUMMARY | 2019-12-22 03:39 | XMS REPORT | Continuity of Care Document ---
Author Organization Unknown Address Unknown Phone Unavailable Allergies Active Description Code Type Severity Reaction Onset Reported/Identified Relationship to Patient Clinical Status Yes No Known Drug Allergies [id number] Drug Allergy Unknown N/A 10/29/2019 Medications There is no data. Problems Date Dx Coded Attending Type Code Diagnosis Diagnosed By 10/31/2019 DUNBAR DO, KARLA Ot E66.9 OBESITY, UNSPECIFIED 10/31/2019 DUNBAR DO, KARLA Ot F32.9 MAJOR DEPRESSIVE DISORDER, SINGLE EPISOD 10/31/2019 DUNBAR DO, KARLA Ot I10 ESSENTIAL (PRIMARY) HYPERTENSION 10/31/2019 DUNBAR DO, KARLA Ot L02.01 CUTANEOUS ABSCESS OF FACE 10/31/2019 DUNBAR DO, KARLA Ot Z68.41 BODY MASS INDEX (BMI) 40.0-44.9, ADULT 10/31/2019 DUNBAR DO, KARLA Ot Z79.[address] FREIGHT (CURRENT) DRUG THERAPY 10/31/2019 DUNBAR DO, KARLA Ot Z83.3 FAMILY HISTORY OF DIABETES MELLITUS 11/23/2019 DUNBAR DO, KARLA Ot E66.9 OBESITY, UNSPECIFIED 11/23/2019 DUNBAR DO, KARLA Ot F32.9 MAJOR DEPRESSIVE DISORDER, SINGLE EPISOD 11/23/2019 DUNBAR DO, KARLA Ot I10 ESSENTIAL (PRIMARY) HYPERTENSION 11/23/2019 DUNBAR DO, KARLA Ot L02.01 CUTANEOUS ABSCESS OF FACE 11/23/2019 DUNBAR DO, KARLA Ot Z68.41 BODY MASS INDEX (BMI) 40.0-44.9, ADULT 11/23/2019 DUNBAR DO, KARLA Ot Z79.[address] FREIGHT (CURRENT) DRUG THERAPY 11/23/2019 DUNBAR DO, KARLA Ot Z83.3 FAMILY HISTORY OF DIABETES MELLITUS 11/29/2019 DUNBAR DO, KARLA Ot E66.9 OBESITY, UNSPECIFIED 11/29/2019 DUNBAR DO, KARLA Ot F32.9 MAJOR DEPRESSIVE DISORDER, SINGLE EPISOD 11/29/2019 DUNBAR DO, KARLA Ot I10 ESSENTIAL (PRIMARY) HYPERTENSION 11/29/2019 KARLA DUNBAR DO Ot L02.01 CUTANEOUS ABSCESS OF FACE 11/29/2019 KARLA DUNBAR DO Ot Z68.41 BODY MASS INDEX (BMI) 40.0-44.9, ADULT 11/29/2019 KARLA DUNBAR DO Ot Z79.89 9 OTHER [employer] (CURRENT) DRUG THERAPY 11/29/2019 KARLA DUNBAR DO Ot Z83.3 FAMILY HISTORY [...] 7-25 CREATININE 1.11 mg/dL 0.60-1.35 eGFR NON-AFR. NIGERIEN 86 mL/min/1.73m2 > OR = 60 eGFR [...] 17:42 Bacteria identification in wound by culture [id number] NRG FREE TEXT EXTERNAL SUSCEPTIBILITY REPORTED 11/01 09 :15 NRG QUANTITY OF GROWTH Rare NRG FREE TEXT ENTRY 2 PRESUMPTIVE MSSA; SCREENING AT [facility] NRG FREE TEXT ENTRY 3 (CONFIRMED BY RML) NR G CALL POSITIVES (F1 HELP) SUSCEPTIBILITY TO FOLLOW NRG PBP2 SCREENING AT [facility] 10/31/19 8:30 NRG Dirithromycin susceptibility test [...] Status Pt. Type Provider Facility Loc./Unit Complaint [id number] 12/20/2019 08:00:00 [id number] 04/30/2019 07:00:00 Document Registration [id number] 10/29/2019 10:17:00 019 13:03:00 DIS Outpatient KARLA DUNBAR DO Via [facility] SDC FACE [place]
== END 2019-10-31 13:03 | disposition home or self-care (01) ==
LOC: ER FS 08:07 → 4TH 10:17 → UNDOADMOB 10:17 → SDC 10:17 → 4TH 10:17 → SDC 10-31 13:03 → UNDODISOB 10-31 13:03
PROVIDERS: ATTEND Internal Medicine
DX: L02.01 Cutaneous abscess of face (principal); I10 Essential (primary) hypertension; F32.9 Major depressive disorder, single episode, unspecified; Z83.3 Family history of diabetes mellitus; E66.9 Obesity, unspecified; Z68.41 Body mass index [BMI] 40.0-44.9, adult; Z79.899 Other long term (current) drug therapy
CPT/HCPCS: 36415; 70491; 80053; 80202; 85007; 85025; 85027; 87070; 87075; 87077; 87186; 87205; 96374; 96375

== ENCOUNTER 2020-05-20 08:58 | Emergency (ER) | payer BC ==
[~2020-05-20 08:58] MED LIST: ACHYD1T PO; CHLO25TA22; CHLO50TA2 PO; CYCL10TA9 PO; DOXY100C42 PO; LAMO25TA8 PO; Lamotrigine; METO50TA7 PO; MICO90PO TOP; MUPI22OI2 TP; NITR0.4T42 SL; NYST15CR TP; SULF1TAB34 PO
--- OUTSIDE RECORDS SUMMARY | 2020-05-20 09:03 | XMS REPORT | Continuity of Care Document ---
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 [place] 86 mL/min/1.73m2 > OR = 60 eGFR [...] 17:42 Bacteria identification in wound by culture [id number] NRG FREE TEXT EXTERNAL SUSCEPTIBILITY REPORTED 11/01 09 :15 NRG QUANTITY OF GROWTH Rare NRG FREE TEXT ENTRY 2 PRESUMPTIVE MSSA; SCREENING AT [facility] NRG FREE TEXT ENTRY 3 (CONFIRMED BY RML) NR G CALL POSITIVES (F1 HELP) SUSCEPTIBILITY TO FOLLOW NRG PBP2 SCREENING AT [facility] 10/31/19 8:30 NRG Dirithromycin susceptibility test [...] Status Pt. Type Provider Facility Loc./Unit Complaint [id number] 01/17/2020 08:00:00 01/17/2020 23:59: 59 CLS Outpatient [facility] HINES [id number] 04/30/2019 07:00:00 Document Registration [id number] 10/29/2019 10:17:00 019 13:03:00 DIS Outpatient KARLA DUNBAR DO Via [facility] SDC FACE [place]
[2020-05-20] MEDS ORDERED: LIDOCAINE 2% VISCOUS 15 ML UDC PO ONE (09:15)
[2020-05-20] MEDS ORDERED: ASPIRIN 81 MG CHEW (CHILDREN'S ASA) PO ONE (09:15)
[2020-05-20] MEDS ORDERED: NS IV 1000 ML 1,000 ML IV SCH (09:15)
[2020-05-20] MEDS ORDERED: ANTACID SUSP 30 ML UDC (MYLANTA) PO ONE (09:15)
--- NOTE | 2020-05-20 09:17 | ED Chest Pain ---
General Stated Complaint: PT IS SHAKY Source: patient, EMS Exam Limitations: no limitations History of Present Illness Date Seen by Provider: May 20, 2020 Time Seen by Provider: 09:02 Initial Comments The patient is a pleasant 34-year-old male presents via EMS for evaluation of some chest discomfort, nausea, and shakiness which started this morning. He did not even mention to EMS that he was having any chest discomfort until he got to the emergency department, because his chest discomfort had completely resolved before EMS got to his home and was minor. He was given a Zofran by EMS in route and states that he is now feeling much better. He is not complaining of any chest pain or shortness of breath at this time and denies having any shortness of breath or cough at any time. He states he has had similar symptoms before which related to a GI source. He states that he had a heart catheterization for chest pain at about a year ago and that was unremarkable. He does mention that he is under a great deal of stress and anxiety because he works in a [employer] and the coronavirus has made things much worse. He says that at the time of the symptoms his blood pressure was elevated to approximately 165 systolic and this concerned him even more. He states that his hands were pale at the time as well which also concerned him but has since resolved. He is alert and oriented 4, somewhat anxious, but appears to be in no distress at this time. He denies fevers or chills, cough, shortness of breath, abdominal or back pain, palpitations, or syncope. He is alert and oriented 4, calm, and appears to be in no distress this time. Timing/Duration: resolved prior to arrival Severity/Quality: moderate Location: substernal Radiation: no radiation Activities at Onset: none Prior CP/Workup: cardiac cath (about a year ago, unremarkable) ASA po RODEO PERFORMER: No NTG SL RODEO PERFORMER: No Associated Symptoms: dizziness (resolved), nausea/vomiting (nausea only) Allergies and Home Medications Allergies Coded Allergies: No Known Drug Allergies (Unverified , 10/29/19) Home Medications Chlorthalidone 50 Mg Tablet, 50 MG PO DAILY, (Reported) Cyclobenzaprine HCl 10 Mg Tablet, 10 MG PO TID PRN for MUSCLE SPASMS, (Reported) Doxycycline Monohydrate 100 Mg Capsule, 100 MG PO BID Prescribed by: KARLA DUNBAR on 12/8/19 1206 Hydrocodone Bit/Acetaminophen 1 Each Tablet, 1 EA PO Q4H PRN for PAIN-MODERATE (5-7) Prescribed by: KARLA DUNBAR on 10/31/191205 Lamotrigine 25 Mg Tablet, 50 MG PO DAILY, (Reported) TAKES 2 (25MG) TABLETS Metoprolol Succinate 50 Mg Tab.er.24h, 50 MG PO DAILY, (Reported) Miconazole Nitrate 90 Gm Powder, 0 GM TOP BID Prescribed by: KARLA DUNBAR on 10/31/191205 Mupirocin 22 Gm Oint...g., 22 GM TP BID Prescribed by: KARLA DUNBAR on 10/31/191205 Nitroglycerin 0.4 Mg Tab.subl, 0.4 MG SL UD PRN for CHEST PAIN (ANGINA), (Reported) Nystatin 15 Gm Cream..g., 0 GM TP TID Prescribed by: KARLA DUNBAR on 10/31/191205 Sulfamethoxazole/Trimethoprim 1 Each Tablet, 1 EACH PO BID Prescribed by: KARLA DUNBAR on 10/31/191205 Patient Home Medication List Home Medication List Reviewed: Yes Review of Systems Review of Systems Constitutional: no symptoms reported EENTM: No Symptoms Reported Respiratory: No Symptoms Reported Cardiovascular: Chest Pain Gastrointestinal: Nausea Genitourinary: No Symptoms Reported Musculoskeletal: no symptoms reported Skin: no symptoms reported Psychiatric/Neurological: No Symptoms Reported Endocrine: No Symptoms Reported Hematologic/Lymphatic: No Symptoms Reported All Other Systems Reviewed Negative Unless Noted: Yes Past Euytsev-Dckzof-Gehcbh Hx Past Med/Social Hx: Reviewed Nursing Past Med/Soc Hx Patient Social History Recent Hopitalizations: No Immunizations Up To Date Tetanus Booster (TDap): Less than 5yrs Date of Influenza Vaccine: Sep 24, 2019 Seasonal Allergies Seasonal Allergies: No Past Medical History Surgeries: Yes (Gastric bypass 2016, Bilat inguinal hernia) Cardiac: Yes Hypertension Neurological: No Genitourinary: No Gastrointestinal: No Musculoskeletal: No Endocrine: No HEENT: No Cancer: No Psychosocial: Yes (medicated for "Anger issues" ) Depression Integumentary: Yes (area of concern R cheek marked swelling) Recent Skin Changes Blood Disorders: No Family Medical History Diabetes mellitus 19 FATHER 19 MOTHER G8 SISTER Thyroid disease G8 SISTER Physical Exam Vital Signs Vital Signs - First Documented 05/20/20 09:14 Temp 36.2 Pulse 84 Resp 20 B/P (MAP) 137/83 (101) Pulse Ox 99 Capillary Refill : Height, Weight, BMI Height: '" Weight: lbs. oz. kg; 41.91 BMI Method: General Appearance: No Apparent Distress, WD/WN, Anxious HEENT: PERRL/EOMI, Pharynx Normal Neck: Full Range of Motion, Normal Inspection Respiratory: Lungs Clear, Normal Breath Sounds, No Accessory Muscle Use, No Respiratory Distress Cardiovascular: Regular Rate, Rhythm, No JVD, No Murmur, Normal Peripheral Pulses Gastrointestinal: Normal Bowel Sounds, No Pulsatile Mass, Non Tender, Soft Extremity: Normal Capillary Refill, Non Tender, No Calf Tenderness Neurologic/Psychiatric: Alert, Oriented x3, No Motor/Sensory Deficits, Normal Mood/Affect Skin: Normal Color, Warm/Dry Progress/Results/Core Measures Results/Orders Lab Results Laboratory Tests Test 05/20/20 09:16 05/20/20 09:32 Range/Units White Blood Count 7.8 4.3-11.0 10^3/uL Red Blood Count 5.43 4.35-5.85 10^6/uL Hemoglobin 15.3 13.3-17.7 G/DL Hematocrit 45 40-54 % Mean Corpuscular Volume 83 80-99 FL Mean Corpuscular Hemoglobin 28 25-34 PG Mean Corpuscular Hemoglobin Concent 34 32-36 G/DL Red Cell Distribution Width 12.5 10.0-14.5 % Platelet Count 250 130-400 10^3/uL Mean Platelet Volume 10.0 7.4-10.4 FL Neutrophils (%) (Auto) 92 H 42-75 % Lymphocytes (%) (Auto) 6 L 12-44 % Monocytes (%) (Auto) 2 0-12 % Eosinophils (%) (Auto) 1 0-10 % Basophils (%) (Auto) 0 0-10 % Neutrophils # (Auto) 7.2 1.8-7.8 X 10^3 Lymphocytes # (Auto) 0.4 L 1.0-4.0 X 10^3 Monocytes # (Auto) 0.1 0.0-1.0 X 10^3 Eosinophils # (Auto) 0.1 0.0-0.3 10^3/uL Basophils # (Auto) 0.0 0.0-0.1 10^3/uL Neutrophils % (Manual) 83 % Lymphocytes % (Manual) 5 % Monocytes % (Manual) 1 % Eosinophils % (Manual) 0 % Basophils % (Manual) 1 % Band Neutrophils 10 % Sodium Level 140 135-145 MMOL/L Potassium Level 2.8 L 3.6-5.0 MMOL/L Chloride Level 96 L 98-107 MMOL/L Carbon Dioxide Level 30 21-32 MMOL/L Anion Gap 14 5-14 MMOL/L Blood Urea Nitrogen 19 H 7-18 MG/DL Creatinine 1.18 0.60-1.30 MG/DL Estimat Glomerular Filtration Rate > 60 BUN/Creatinine Ratio 16 Glucose Level 105 70-105 MG/DL Calcium Level 9.8 8.5-10.1 MG/DL Corrected Calcium 9.5 8.5-10.1 MG/DL Total Bilirubin 0.5 0.1-1.0 MG/DL Aspartate Amino Transf (AST/SGOT) 20 5-34 U/L Alanine Aminotransferase (ALT/SGPT) 18 0-55 U/L Alkaline Phosphatase 78 40-136 U/L Troponin I < 0.30 <0.30 NG/ML Pro-B-Type Natriuretic Peptide 128.5 H <75.0 PG/ML Total Protein 7.3 6.4-8.2 GM/DL Albumin 4.4 3.2-4.5 GM/DL Lipase 24 8-78 U/L Urine Color YELLOW Urine Clarity CLEAR Urine pH 7.0 5-9 Urine Specific [place] 1.015 L 1.016-1.022 Urine Protein NEGATIVE NEGATIVE Urine Glucose (UA) NEGATIVE NEGATIVE Urine Ketones NEGATIVE NEGATIVE Urine Nitrite NEGATIVE NEGATIVE Urine Bilirubin NEGATIVE NEGATIVE Urine Urobilinogen 1.0 < = 1.0 MG/DL Urine Leukocyte Esterase NEGATIVE NEGATIVE Urine RBC (Auto) NEGATIVE NEGATIVE Urine RBC NONE /HPF Urine WBC 0-2 /HPF Urine Squamous Epithelial Cells NONE /HPF Urine Crystals NONE /LPF Urine Bacteria NEGATIVE /HPF Urine Casts NONE /LPF Urine Mucus NEGATIVE /LPF Urine Culture Indicated NO My Orders Orders - KEYUR BURLESON DO Cbc With Automated Diff (05/20/20 09:07) Comprehensive Metabolic Panel (05/20/20 09:07) Lipase (05/20/20 09:07) Ua Culture If Indicated (05/20/20 09:07) Troponin I Fs (05/20/20 09:07) Ekg Tracing (05/20/20 09:07) Continuous Ekg Monitoring (05/20/20 09:07) Probnp Fs (05/20/20 09:07) Ns Iv 1000 Ml (Sodium Chloride 0.9%) (05/20/20 09:15) Lidocaine 2% Viscous 15 Ml (Xylocaine Vi (05/20/20 09:15) Antacid Suspension (Mylanta Suspension (05/20/20 09:15) Aspirin Chewable Tablet (Baby Aspirin Ch (05/20/20 09:15) Chest 1 View Ap/Pa Only (05/20/20 09:10) Manual Differential (05/20/20 09:16) Potassium Chloride (Tablet) (K Dur Table (05/20/20 10:15) Medications Given in ED Current Medications Medications Dose Ordered Sig/Shahnaz Route Start Time Stop Time Status Last Admin Dose Admin Al Hydrox/Mg Hydrox/Simethicone 30 ml ONCE ONCE PO 05/20/20 09:15 05/20/20 09:16 DC 05/20/20 09:27 30 ML Aspirin 324 mg ONCE ONCE PO 05/20/20 09:15 05/20/20 09:16 DC 05/20/20 09:25 324 MG Lidocaine HCl 15 ml ONCE ONCE PO 05/20/20 09:15 05/20/20 09:16 DC 05/20/20 09:27 15 ML Vital Signs/I&O 05/20/20 09:14 Temp 36.2 Pulse 84 Resp 20 B/P (MAP) 137/83 (101) Pulse Ox 99 Progress Progress Note : Progress Note @1015 - patient updated on lab and imaging results including the finding of hypo kalemia. The patient does normally take potassium supplements. He has been given oral potassium here and has been encouraged to take increase potassium over the next 5 days. Advised patient to follow up with his PCP in the next 2 days and return to the emergency Department immediately for new or worsening symptoms. The patient has no more concerns or complaints and is stable for discharge. Comment EKG@0908 - Normal sinus rhythm, rate of 86, normal axis, no acute ischemic findings noted, no STEMI, reviewed and interpreted by myself Diagnostic Imaging Diagonstic Imaging: Xray Comments [facility] [place], [place] NAME: FELIX MIMS MED REC#: [id number] PT STATUS: REG ER : 1985 PHYSICIAN: KEYUR BURLESON DO ADMIT DATE: 05/20/20/ER FS Draft Date of Exam:05/20/20 CHEST 1 VIEW AP/PA ONLY Indication: Chest pain. Comparison: None. Findings: Single view of the chest demonstrates clear lungs bilaterally. The heart is normal. There is no pneumothorax. Osseous structures normal. Impression: Negative chest Dictated on workstation # [id number] Dict: 05/20/20939 Trans: 05/20/2046 CV [id number] Interpreted by: CORRINA VALDIVIA Electronically signed by: Departure Impression Primary Impression: Nausea Additional Impressions: Hypokalemia Atypical chest pain Disposition: 01 HOME, SELF-CARE Condition: Stable Departure-Patient Inst. Decision time for Depature: 10:15 Referrals: NO,LOCAL PHYSICIAN (PCP/Family) Primary Care Physician Patient Instructions: Chest Pain That Is Not Caused by the Heart (DC), Heart H ealthy Diet, Hypokalemia, Nausea and Vomiting, Adult (DC) Add. Discharge Instructions: Take the prescribed medicine instructed. Return to the emergency Department immediately for new or worsening symptoms. Take double your potassium dose over the next 5 days. Follow-up with your doctor in the next 2-3 days. Scripts Ondansetron (Ondansetron Odt) 4 Mg Tab.rapdis 4 MG PO Q4H PRN for NAUSEA/VOMITING-1ST LINE for 7 Days, #20 TAB Prov: KEYUR BURLESON DO 05/20/20 KEYUR BURLESON DO May 20, 2020 09:17
[2020-05-20 09:28] LABS: HEMATOCRIT 45 % (40-54); HEMOGLOBIN 15.3 G/DL (13.3-17.7); MEAN CORPUSCULAR HEMOGLOBIN 28 PG (25-34); MEAN CORPUSCULAR HGB CONC 34 G/DL (32-36); MEAN CORPUSCULAR VOLUME 83 FL (80-99); PLATELET COUNT 250 10^3/uL (130-400); RED CELL DISTRIBUTION WIDTH 12.5 % (10.0-14.5); WHITE BLOOD COUNT 7.8 10^3/uL (4.3-11.0)
[2020-05-20 09:29] LABS: BASOPHILS % (AUTO) 0 % (0-10); EOSINOPHILS # (AUTO) 0.1 10^3/uL (0.0-0.3); EOSINOPHILS % (AUTO) 1 % (0-10); LYMPHOCYTES # (AUTO) 0.4 X 10^3 (1.0-4.0); LYMPHOCYTES % (AUTO) 6 % (12-44); MONOCYTES # (AUTO) 0.1 X 10^3 (0.0-1.0); MONOCYTES % (AUTO) 2 % (0-12); NEUTROPHILS # (AUTO) 7.2 X 10^3 (1.8-7.8); NEUTROPHILS % (AUTO) 92 % (42-75)
[2020-05-20 09:44] LABS: BACTERIA,URINE NEGATIVE /HPF; BILIRUBIN,URINE NEGATIVE (NEGATIVE); CLARITY,URINE CLEAR; COLOR,URINE YELLOW; GLUCOSE, URINE (UA) NEGATIVE (NEGATIVE); KETONES,URINE NEGATIVE (NEGATIVE); LEUKOCYTE ESTERASE ,URINE NEGATIVE (NEGATIVE); NITRITE,URINE NEGATIVE (NEGATIVE); PROTEIN,URINE NEGATIVE (NEGATIVE); WBC,URINE 0-2 /HPF
--- NOTE | 2020-05-20 09:47 | Diagnostic Imaging Report ---
Indication: Chest pain. Comparison: None. Findings: Single view of the chest demonstrates clear lungs bilaterally. The heart is normal. There is no pneumothorax. Osseous structures normal. Impression: Negative chest Dictated by: Dictated on workstation # [id number]
[2020-05-20 09:50] LABS: BAND NEUTROPHILS 10 %; BASOPHILS % (MANUAL) 1 %; EOSINOPHILS % (MANUAL) 0 %; LYMPHOCYTES % (MANUAL) 5 %; MONOCYTES % (MANUAL) 1 %; NEUTROPHILS % (MANUAL) 83 %
[2020-05-20 09:55] LABS: ALKALINE PHOSPHATASE 78 U/L (40-136); BILIRUBIN,TOTAL 0.5 MG/DL (0.1-1.0); BUN/CREATININE RATIO 16; CALCIUM 9.8 MG/DL (8.5-10.1); CARBON DIOXIDE 30 MMOL/L (21-32); CHLORIDE 96 MMOL/L (98-107); CREATININE SERUM 1.18 MG/DL (0.60-1.30); GFR ESTIMATED > 60; GLUCOSE 105 MG/DL (70-105); POTASSIUM 2.8 MMOL/L (3.6-5.0); SODIUM 140 MMOL/L (135-145)
[2020-05-20 09:56] LABS: ALANINE AMINOTRANSFERASE 18 U/L (0-55); ALBUMIN 4.4 GM/DL (3.2-4.5); LIPASE 24 U/L (8-78); TOTAL PROTEIN 7.3 GM/DL (6.4-8.2)
[2020-05-20] MEDS ORDERED: KCL 20 MEQ TAB (K-DUR) PO ONE (10:15)
[2020-05-20] MEDS ORDERED: ONDA4TAB11 PO (10:16)
[2020-05-20 11:05] VITALS: BP 119/65
== END 2020-05-20 11:05 ==
LOC: EDUNIT# 08:58 → ER FS 09:00
DX: R07.89 Other chest pain (principal); R11.0 Nausea; E87.6 Hypokalemia; I10 Essential (primary) hypertension; F32.9 Major depressive disorder, single episode, unspecified; Z95.9 Presence of cardiac and vascular implant and graft, unspecified
CPT/HCPCS: 36415; 71045; 80053; 81000; 83690; 83735; 83880; 84484; 85007; 85027; 93005